=== PATIENT | female | born 2000 | race Two or more races ===

== ENCOUNTER 2020-05-03 14:32 | Emergency (ER) | payer SELFPAY ==
[~2020-05-03] VITALS: Ht 165.1 cm; Wt 54.0 kg
[2020-05-03 14:56] VITALS: BP 132/88
[2020-05-03] MEDS ORDERED: BACITRACIN ZINC OINT UDPKT TOP ONE (15:15)
[2020-05-03] MEDS ORDERED: TETANUS, DIPHTHERIA, PERTUSSIS VAC/PF 0.5ML (>7YR OLD) IM ONE (15:15)
[2020-05-03] MEDS ORDERED: IBUPROFEN 600MG TABLET PO ONE (15:15)
== END 2020-05-03 16:12 | disposition home or self-care (01) ==
LOC: ER 14:32
DX: S80.811A Abrasion, right lower leg, initial encounter (principal); W34.00XA Accidental discharge from unspecified firearms or gun, initial encounter; Y93.01 Activity, walking, marching and hiking; Y92.89 Other specified places as the place of occurrence of the external cause; Y99.8 Other external cause status
CPT/HCPCS: 99281